=== PATIENT | male | born 1960 ===

== ENCOUNTER 2017-08-14 09:35 | Outpatient (CLI) | payer OTHER ==
--- NOTE | 2017-08-14 11:14 | RAD ---
FOUR VIEWS OF THE LEFT SHOULDER: INDICATION: Left shoulder pain. COMPARISON: None. FINDINGS: Visualized left lung is clear. 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 No acute fracture or sub luxation is evident. IMPRESSION: No acute osseous abnormality. POS: [facility]
== END 2017-08-14 09:36 | disposition home or self-care (01) ==
LOC: NAV RAD 09:35
PROVIDERS: ATTEND Family Medicine
DX: M75.22 Bicipital tendinitis, left shoulder (principal)